=== PATIENT | female | born 1980 | race Two or more races ===

== ENCOUNTER 2021-03-01 11:00 | Emergency (ER) | payer OTHER ==
[~2021-03-01] VITALS: Ht 165.1 cm; Wt 81.6 kg
[2021-03-01] MEDS ORDERED: VALSARTAN160 MG (11:09)
== END 2021-03-01 16:58 | disposition home or self-care (01) ==
LOC: ER 11:00
DX: J06.9 Acute upper respiratory infection, unspecified (principal); J32.0 Chronic maxillary sinusitis; Z11.52 Encounter for screening for COVID-19